=== PATIENT | female | born 1990 | race Caucasian/White ===

== ENCOUNTER → 2017-09-24 | Outpatient (CLI) | payer MEDICAID, OTHER ==
--- NOTE | 2017-09-24 14:14 | Diagnostic Imaging Report ---
INDICATION: Assessment of normal . TECHNIQUE: Multiple real-time grayscale images were obtained over the gravid uterus. COMPARISON: None. FINDINGS: Single viable intrauterine , currently in transverse position. The amount of amniotic fluid appears to be within normal limits. Placenta is posterior and without evidence for previa. Cervical length at 5.8 cm. Visualized anatomical structures including the kidneys, bladder, stomach, intracranial structures, four-chamber heart, three-vessel cord and cord insertion site appearing unremarkable. The lower spine is not well visualized owing to position. The maternal adnexa is not imaged. Biometrical measurements are as follows: Biparietal 4.7 cm, age 20 weeks 1 days. Head circumference 16.8 cm, age 19 weeks 4 days. Abdominal circumference 14.3 cm, age 19 weeks 5 days. Femur length 3.0 cm, age 19 weeks 2 days. Sonographic estimate age: 19 weeks 5 days. Sonographic estimated date of delivery: 02/13/2018. Estimated Weight: 296 gm (+/- 43 gm). LMP percentile: 58%. heart rate: 142 beats per minute. number: 1 of 1. IMPRESSION: 1. Single viable intrauterine , currently in a transverse position. Sonographically estimated age at 19 weeks 5 days for sonographically estimated date of delivery of February 13, 2018. 2. No abnormalities noted at this time. However, the lower spine is not able to be well evaluated. Consideration for followup limited obstetrical sonogram would be recommended. Dictated by: Dictated on workstation # [id number]
== END ==
LOC: RAD 12:13
PROVIDERS: ATTEND Family Medicine
DX: Z34.02 Encounter for supervision of normal first pregnancy, second trimester (principal); Z3A.19 19 weeks gestation of pregnancy
CPT/HCPCS: 76805

== ENCOUNTER → 2017-11-05 | Outpatient (CLI) | payer OTHER, MEDICAID ==
--- NOTE | 2017-11-05 13:32 | Diagnostic Imaging Report ---
INDICATION: Followup spine. TECHNIQUE: Multiple Real-time grayscale images were obtained over the gravid uterus. COMPARISON: 09/24/2017. FINDINGS: There is a single live fetus in a cephalic presentation. The heart rate was recorded at 142 BPM. The placenta is posterior. The amniotic fluid volume appears appropriate. The lower spine was visualized today and appears unremarkable. IMPRESSION: Unremarkable limited obstetrical ultrasound. The lower spine was visualized on today's study and appears unremarkable. Dictated by: Dictated on workstation # [id number]
== END ==
LOC: RAD 09:54
PROVIDERS: ATTEND Family Medicine
DX: Z34.91 Encounter for supervision of normal pregnancy, unspecified, first trimester (principal); Z3A.17 17 weeks gestation of pregnancy
CPT/HCPCS: 76816